=== PATIENT | male | born 1950 | race Caucasian/White ===

== ENCOUNTER 2024-10-03 14:25 | Emergency (ER) | payer OTHER ==
[~2024-10-03] VITALS: Ht 172.7 cm; Wt 112.0 kg
[2024-10-03] VITALS (15 sets, daily range): BP systolic 110–145; BP diastolic 64–89
[2024-10-03] MEDS ORDERED: ONDANSETRON HCl 4 MG/2 ML SDV IV ONE (14:55)
[2024-10-03 15:17] LABS: BASO% 0.8 % (0-3); EOS% 2.7 % (0-8); HEMATOCRIT 42.2 % (39.0-50.0); HEMOGLOBIN 13.9 g/dl (14.0-18.0); IMMATURE GRANULOCYTES 0.1 % (0.0-5.0); LYMPH% 23.3 % (15-41); MEAN CELL VOLUME 89.6 fL CALC (80.0-100.0); MEAN CORPUSCULAR HGB 29.5 pG CALC (26.0-32.0); MEAN CORPUSCULAR HGB CONC 32.9 g/dL CAL (32.0-36.0); MONO% 12.7 % (2-13); NEUT# 4.44 thou/uL (1.82-7.42); NEUT% 60.4 % (42-76); RED BLOOD COUNT 4.71 mill/uL (4.70-6.10); RED CELL DISTRI WIDTH 14.4 % (11.5-15.5)
[2024-10-03 15:18] LABS: URINE BILIRUBIN - DIPSTICK Negative (NEGATIVE); URINE BLOOD DIPSTICK Negative (NEGATIVE); URINE GLUCOSE - DIPSTICK >=1000 mg/dL (NEGATIVE); URINE KETONE Negative (NEGATIVE); URINE LEUK ESTERASE Negative (NEGATIVE); URINE NITRITE - DIPSTICK Negative (Negative); URINE PROTEIN - DIPSTICK 30 mg/dL (NEG-TRACE); URINE UROBILINOGEN - DIPSTICK 0.2 E.U./dL (0.2)
[2024-10-03 15:21] LABS: URINE COLOR Yellow
[2024-10-03 15:29] LABS: URINE TRANSITIONAL EPI. CELLS FEW hpf
[2024-10-03 16:05] LABS: ALBUMIN 4.2 g/dL (3.2-5.0); BILIRUBIN, TOTAL 1.6 mg/dL (0.2-1.3); CREATININE 1.1 mg/dL (0.7-1.3); POTASSIUM 2.9 mmol/l (3.5-5.1); TOTAL PROTEIN 7.3 g/dL (6.3-8.2)
[2024-10-03] MEDS ORDERED: POTASSIUM CHLORIDE 20 MEQ/TAB PO ONE (19:00)
[2024-10-03] MEDS ORDERED: MAGNESIUM OXIDE 400 MG/TAB PO ONE (19:25)
[2024-10-03] MEDS ORDERED: POTASSIUM CHLORIDE 40 MEQ in SODIUM CHLORIDE 0.45% 1,000 ML IV ONE (19:25)
[2024-10-03] MEDS ORDERED: HYDROCO/APAP1 TA9 PO (23:10)
[2024-10-03] MEDS ORDERED: KLOR-CON M2020 MEQ PO (23:10)
[2024-10-03] MEDS ORDERED: MAGOX 400400 MG PO (23:10)
[2024-10-03] MEDS ORDERED: ZOFRAN4 MG/TAB PO (23:10)
== END 2024-10-03 23:38 | disposition home or self-care (01) | DRG 440 ==
LOC: ED 14:25
PROVIDERS: Family Medicine
DX: K86.89 Other specified diseases of pancreas (principal); E87.6 Hypokalemia; E11.9 Type 2 diabetes mellitus without complications; I10 Essential (primary) hypertension; Z87.19 Personal history of other diseases of the digestive system
CPT/HCPCS: J2405; Q9967